=== PATIENT | female | born 1965 | race Caucasian/White ===

== ENCOUNTER → 2021-09-11 07:58 | Outpatient (BNVA) | payer OTHER, SELFPAY | PROVIDERS: PCP Internal Medicine Cardiovascular Disease; Visit Provider Nurse Practitioner Family | DX: Z13.89 Encounter for screening for other disorder (principal) ==

== ENCOUNTER → 2021-11-20 09:33 | Outpatient (REF) | payer OTHER, SELFPAY | LOC: HO.SL 09:33 | PROVIDERS: PCP Internal Medicine Cardiovascular Disease; Visit Provider Nurse Practitioner Family | DX: G47.33 Obstructive sleep apnea (adult) (pediatric) (principal); R06.83 Snoring; R40.0 Somnolence; G25.81 Restless legs syndrome | CPT/HCPCS: 95806 ==

== ENCOUNTER → 2022-07-02 09:33 | Outpatient (BNVA) | payer OTHER, SELFPAY | PROVIDERS: PCP Internal Medicine Cardiovascular Disease; Visit Provider Nurse Practitioner Family | DX: G47.33 Obstructive sleep apnea (adult) (pediatric) (principal); Z99.89 Dependence on other enabling machines and devices | CPT/HCPCS: 99212 ==

== ENCOUNTER 2023-07-08 09:24 | Outpatient (AMB) | payer OTHER, SELFPAY ==
--- NOTE | 2023-07-08 09:27 | MHC.OFFVIS ---
Intake Vital Signs 07/08/23 09:33 Height 5 ft 1 in Weight 159 lb 2 oz BMI 30.1 BP 110/70 Blood Pressure Location Rt brachial Position Sitting Pulse 57 Pulse Source Pulse Oximeter Pulse Oximetry (%) 96 Oxygen Delivery Method Room Air Intake Visit Reasons: 1yr F/u Sleep Apnea-LVM Intake Note: Patient presents 1 year FlU for sleep Apnea. Allergies peanut Allergy (Intermediate, Verified 07/08/23 09:32) Hives HPI HPI Comments History of Present Illness Details 57 y/o female patient presents for follow up of DEEJAY on CPAP. CPAP compliance and therapy response (04/03/23-07/01/22) reviewed. Pt is on APAP [id number]. Usage days 100%, average usage hours 7 hours. The average pressure is 6.6 and the residual AHI was 2.5/hr. Pt reports she sleeps well, but can't sleep more than 6-7 hours at night. If she goes to bed early about 9 pm, she wakes up 5 am and can't go back to sleep. Pt denies daytime sleepiness of tiredness. She can have nasal irritation occasionally. Shiva AM headache. [facility]LY [facility] Surgical History H/O: Family History (Updated 07/08/23 @ 09:38 by Precious Ocasio CMA) Father HTN (hypertension) Hepatitis C Renal failure Mother HTN (hypertension) Hypercholesterolemia due to cholesterol 7alpha-hydroxylase deficiency Brother HTN (hypertension) Hypercholesterolemia due to cholesterol 7alpha-hydroxylase deficiency Social History Alcohol intake: never Patient Tobacco Use Status: Never used Tobacco Review of Systems Const All systems reviewed & are unremarkable except as noted in HPI and below Physical Exam Vital Signs: Last Vital Signs Pulse 57 07/08/23 09:33 BP 110/70 07/08/23 09:33 Pulse Ox 96 07/08/23 09:33 Oxygen Delivery Method Room Air 07/08/23 09:33 BMI result Body Mass Index 30.1 Const General: cooperative and comfortable Nutritional Appearance: overweight Orientation/consciousness: patient oriented x3 Limitations: no limitations HEENT Head: Yes normocephalic Throat: Yes other (mallampati score 3) Neck Neck: Yes full ROM Resp Effort & Inspection: normal respiratory effort and able to speak in complete sentences Auscultation: clear to auscultation bilaterally Neuro General: patient oriented x3, gait normal, moves all extremities and CN's II-XI intact bilaterally Psych Appearance: grossly normal Speech and movement: Normal speech and movement present Affect: normal affect Assessment & Plan Assessment & Plan (1) DEEJAY on CPAP: Comment: A severe degree of sleep apnea with increased severity in supine sleep. The AHI was 28/hr, supine AHI was 42/hr and oxygen tatum was 78%. Code(s): G47.33 - Obstructive sleep apnea (adult) (pediatric); Z99.89 - Dependence on other enabling machines and devices Plan Continue to use APAP [id number] as patient experiences good clinical effects. Stressed compliance, use CPAP nightly, more than 4 hours. Continue daily exercise and wt management. Coding Level of Care Code Est Pt Level 3 (38241) Diagnoses DEEJAY on CPAP G47.33; Z99.89
[2023-07-08 09:33] VITALS: BP 110/70; PULSE 57; O2SAT 96; BMI 30.1
== END 2023-07-08 09:47 | disposition home or self-care (01) ==
PROVIDERS: PCP Internal Medicine Cardiovascular Disease; Visit Provider Nurse Practitioner Family
DX: G47.33 Obstructive sleep apnea (adult) (pediatric) (principal); Z99.89 Dependence on other enabling machines and devices
CPT/HCPCS: 99213

== ENCOUNTER → 2023-07-08 09:24 | Outpatient (BNVA) | payer OTHER, SELFPAY | PROVIDERS: Visit Provider Nurse Practitioner Family | DX: G47.33 Obstructive sleep apnea (adult) (pediatric) (principal); Z99.89 Dependence on other enabling machines and devices | CPT/HCPCS: 99212 ==

== ENCOUNTER 2024-07-06 09:29 | Outpatient (AMB) | payer OTHER, SELFPAY ==
--- NOTE | 2024-07-06 09:36 | MHC.OFFVIS ---
Vital Signs 07/06/24 09:38 Height 5 ft 1 in Weight 161 lb BMI 30.4 BP 114/70 Blood Pressure Location Lt brachial Position Sitting Pulse 62 Pulse Source Pulse Oximeter Pulse Oximetry (%) 97 Oxygen Delivery Method Room Air Intake Visit Reasons: 1 yr f/u Intake Note: Patient presents for a 1 year fu for DEEJAY. Medieval English Literature Professor Required: No Accompanied by: Self / Same As Patient Allergies peanut Allergy (Intermediate, Verified 07/06/24 09:37) Hives HPI Comments Details: 58 year old female with DEEJAY here for a 1 year f/u. DEEJAY Compliance Report: 04/04/2024- 07/02/2024 Average use >4 hours 35% APAP [id number] Leaks 8.8-2 High leaks, AHI 2.3 She sleeps for about 5.5 hours, she goes to sleep 11pm and gets up at 5am, feels well rested when she wakes up. She changes the filters, cleans mask and tubing, and fills water daily. She recently moved and could not get supplies on time due to Prior Authorization lapse. Denies fatigue, and napping throughout the day. Denies headaches, RLS. She walks daily 1mile - 3miles on the weekend. Her diet is good, dessert is her weakness. Her mood and memory is good. Denies smoking, alcohol on social occasions. [facility] Surgical History H/O: Family History Father HTN (hypertension) Hepatitis C Renal failure Mother HTN (hypertension) Hypercholesterolemia due to cholesterol 7alpha-hydroxylase deficiency Brother HTN (hypertension) Hypercholesterolemia due to cholesterol 7alpha-hydroxylase deficiency Social History Alcohol intake: never Patient Tobacco Use Status: Never used Tobacco Physical Exam Vital Signs: Last Vital Signs Pulse 62 07/06/24 09:38 BP 114/70 07/06/24 09:38 Pulse Ox 97 07/06/24 09:38 Oxygen Delivery Method Room Air 07/06/24 09:38 BMI result Body Mass Index 30.4 Const General: cooperative and comfortable Nutritional Appearance: overweight Orientation/consciousness: patient oriented x3 Limitations: no limitations HEENT Head: Yes normocephalic Throat: Yes other (mallampati score 3) Neck Neck: Yes full ROM Resp Effort & Inspection: normal respiratory effort and able to speak in complete sentences Auscultation: clear to auscultation bilaterally Neuro General: patient oriented x3, gait normal, moves all extremities and CN's II-XI intact bilaterally Psych Appearance: grossly normal Speech and movement: Normal speech and movement present Affect: normal affect Assessment & Plan Assessment & Plan (1) DEEJAY on CPAP: Comment: A severe degree of sleep apnea with increased severity in supine sleep. The AHI was 28/hr, supine AHI was 42/hr and oxygen tatum was 78%. Code(s): G47.33 - Obstructive sleep apnea (adult) (pediatric); Z99.89 - Dependence on other enabling machines and devices Category: Medical (2) HTN (hypertension): Code(s): I10 - Essential (primary) hypertension Category: Medical Qualifiers: Hypertension type: primary hypertension Qualified Code(s): I10 - Essential (primary) hypertension Plan Continue CPAP daily, as patient is experiences refreshed sleep on CPAP. Stressed compliance of CPAP nightly, as patient has HTN and severe sleep apnea. The number 1 modifiable RF for reduction of CV events is HTN, AHA recommends the dash diet, along with lifestyle modificaions. Will f/u in one year, or sooner if she has any other needs. Coding Level of Care Code Est Pt Level 3 (70803) Diagnoses DEEJAY on CPAP G47.33; Z99.89 Primary hypertension I10 Hypertension type: primary hypertension Time Spent (min) 20 Comment improving
[2024-07-06 09:38] VITALS: BP 114/70; PULSE 62; O2SAT 97; BMI 30.4
--- OUTSIDE RECORDS SUMMARY | 2024-07-06 10:05 | XMS_ITS | Encounter Summary ---
Author Organization [facility] Address [address] [place] [address] Care Team Providers Care Chemical Equipment Sales Engineer Name Role Phone Leda Higgins MD Primary Care Provider Un available Reason for Visit * Reason Comments Medication Refill Encounter Details Date Type Department Care Team (Late st Contact Info) Description 02/28/[address] [phone] Leda Higgins MD Retired provider Mixed hyperlipidemia Social History Tobacco Use Types Packs/Day Years Used Date Smoking Tobacco: Never Assessed Sex and Gender Information Value Date Recorded Sex Assigned at Female 2023 12:16 PM EDT Gender Identity Female 2023 12:16 PM EDT Sexual Orientation Heterosexual (straight) 11/17 12:16 PM EDT documented as of this encounter Plan of Treatment Not on file documented as of this encounter Visit Diagnoses Diagnosis Mixed hyperlipidemia documented in this encounter Care Teams Chemical Equipment Sales Engineer Relationship Specialty Start Date End Date Leda Higgins MD PCP - General Cardiovascular Disease 09/09/19 documented as of this encounter
--- OUTSIDE RECORDS SUMMARY | 2024-07-06 10:05 | XMS_ITS | Encounter Summary ---
Author Organization [facility] [address] [place] [address] Care Team Providers Care Atomic Welder Name Role Phone Leda Higgins MD Primary Care Provider Un available Encounter Details Date Type Department Care Team (Late st Contact Info) Description 09/09/2019 Scanned Document [address] [phone] Leda Higgins MD Retired provider Social History Tobacco Use Types Packs/Day Years Used Date Smoking Tobacco: Never Assessed Sex and Gender Information Value Date Recorded Sex Assigned at Female 2023 12:16 PM EDT Gender Identity Female 2023 12:16 PM EDT Sexual Orientation Heterosexual (straight) 11/17 12:16 PM EDT documented as of this encounter Plan of Treatment Not on file documented as of this encounter Visit Diagnoses Not on filedocumented in this encounter Care Teams Atomic Welder Relationship Specialty Start Date End Date Leda Higgins MD PCP - General Cardiovascular Disease 09/09/19 documented as of this encounter
--- OUTSIDE RECORDS SUMMARY | 2024-07-06 10:05 | XMS_ITS | Encounter Summary ---
Author Organization [facility] [address] [place] [address] Care Team Providers Care Rn Neurosurgical Name Role Phone Leda Higgins MD Primary Care Provider Un available Encounter Details Date Type Department Care Team (Late st Contact Info) Description 09/09/2019 Scanned Document [address] [phone] Leda Higgins MD Retired provider Social History [...] on filedocumented in this encounter Care Teams Rn Neurosurgical Relationship Specialty Start Date End Date Leda Higgins MD PCP - General Cardiovascular Disease 09/09/19 documented as of this encounter
--- OUTSIDE RECORDS SUMMARY | 2024-07-06 10:05 | XMS_ITS | Encounter Summary ---
Author Organization [facility] Address [address] [place] [address] Care Team Providers Care Pari Mutual Ticket Checker Name Role Phone Leda Higgins MD Primary Care Provider Un available Encounter Details Date Type Department Care Team (Late st Contact Info) Description 05/22/[address] [phone] Leda Higgins MD Retired provider Social History Tobacco Use Types Packs/Day Years Used Date Smoking Tobacco: Never Smokeless Tobacco: Never Alcohol Use Standard Drinks/Week Comments Never 0 (1 standard drink = 0.6 oz pur e alcohol) PHQ-2 Answer Date Recorded PHQ-2 Total Score 0 02/14/2021 Sex and Gender Information Value Date Recorded Sex Assigned at Female 2023 12:16 PM EDT Gender Identity Female 2023 12:16 PM EDT Sexual Orientation Heterosexual (straight) 11/17 12:16 PM EDT documented as of this encounter Miscellaneous Notes * Telephone Encounter - Eddi Sosa - 05/22/2022 11:17 AM EST 90 DAY SUPPLY documented in this encounter Plan of Treatment Not on file documented as of this encounter Visit Diagnoses Not on filedocumented in this encounter Care Teams Pari Mutual Ticket Checker Relationship Specialty Start Date End Date Leda Higgins MD PCP - General Cardiovascular Disease 09/09/19 documented as of this encounter
--- OUTSIDE RECORDS SUMMARY | 2024-07-06 10:05 | XMS_ITS | Clinical Summary ---
Author Organization [facility] Address [address] [place] [address] Care Team Providers Care Supervisor Liquid Yeast Name Role Phone Kevyn Higgins MD Primary Care Provider [phone] Allergies Active Allergy Reactions Criticality Noted Date Comments Latex Dermatitis Low 05/15/2018 Medications Medication Sig Dispensed Refills Start Date End Date Status Azilsartan-Chlorth alidone (EDARBYCLOR) 40-25 MG TABS Take by mouth. 0 Active Coenzyme Q10 10 MG capsule Take 100 mg by mouth daily. 0 Active rosuvastatin (CRESTOR) tablet 20 mg rosuvastatin 20 mg tablet 0 Active montelukast (SINGULAIR) 10 MG tabletIndications: Cough variant asthma Take 1 tablet (10 mg total) by mouth every night at bedtime. 30 tablet 1 03/05/2023 Active potassium chloride ER (K-DUR,KLOR-CON) tablet 20 mEq Take 1 tablet (20 mEq total) by mouth every other day. 0 06/11/2021 Active COVID-19 At Home Antigen Test KITIndications:At increased risk of exposure to COVID-19 virus 1 kit by In Vitro route once as needed for up to 1 dose. 1 kit 0 12/05/2023 Active Active Problems Problem Noted Date Diagnosed Date Obstructive sleep apnea 06/30/2023 06/30/19 24 Asthma 06/30/2023 06/30/2023 Obesity (BMI 30-39.9) 02/14/2021 06/30/2023 Essential hypertension 05/15/2018 Mixed hyperlipidemia 05/15/2018 Immunizations Name Administration Dates Next Due Covid-19 (Pfizer 12+) 0.3mL mRNA Fall 04/07 Covid-19 (Pfizer) Dilution Required 03/06/2021,0 06/29/2020,06/11/2020 Influenza Quad (Afluria/Fluz one) 0.5mL >=6mon Vial (SD-IIV4) 03/22/2022 Influenza Quad (Fluarix/Fluz one/FluLaval) 0.5mL (SD-IIV4) 04/11/2021,04/05/2020 Pneumococcal Polysaccharide PPSV23 02/23/2020 Shingrix Vaccine (Zoster Recombinant) 06/27/2021 ,02/14/2021 Td (Tenivac) 03/12/2020 Social History Tobacco Use Types Packs/Day Years Used Date Smoking Tobacco: Never Assessed Sex and Gender Information Value Date Recorded Sex Assigned at Female 08/10/2018 2:57 PM EST Gender Identity Not on file Sexual Orientation Not on file Last Filed Vital Signs Vital Sign Reading Time Taken Comments Blood Pressure - - Pulse - - Temperature - - Respiratory Rate - - Oxygen Saturation - - Inhaled Oxygen Concentration - - Weight 74.8 kg (165 lb) 08/11/2018 9:00 AM EST Height 154.9 cm (5' 1 ) 08/11/2018 9:00 AM EST Body Mass Index 31.18 08/11/2018 9:00 AM EST Plan of Treatment Health Maintenance Due Date Last Done Comments Hepatitis B Vaccines (1 of 3 - 3-dose series) 1965 Hepatitis C Screening 1965 Depression Screening 1977 Preventative Health Evaluation 11/19/1983 Cervical Cancer Screening (Pap Smear) 1986 Colon Cancer Screening (Colonoscopy) 2010 Breast Cancer Screening (Mammogram) 11/19/2015 DTap / Tdap / Td (1 - Tdap) 03/13/2020 03/12/2020 Influenza Vaccine (#1) 2024 2, 04/11/2021, 04/05/2020 Pneumococcal Vaccine Aged Out 02/23/2020 No long er eligible based on patient's age to complete this topic Shingrix-Zoster Vaccine Completed 06/27/2021, 02/14 COVID-19 Vaccine Completed 04/07/2024, , 06/29/2020, Additional history exists RSV Ped < 20 months Aged Out No longe r eligible based on patient's age to complete this topic Care Teams Supervisor Liquid Yeast Relationship Specialty Start Date End Date Kevyn Higgins MD PCP - General Cardiology 08/10/18
--- OUTSIDE RECORDS SUMMARY | 2024-07-06 10:05 | XMS_ITS | Encounter Summary ---
Author Organization [facility] [address] [place] [address] Care Team Providers Care Dry Cleaner Apprentice Name Role Phone Leda Higgins MD Primary Care Provider Un available Encounter Details Date Type Department Care Team (Late st Contact Info) Description 09/09/2019 Scanned Document [address] [phone] Leda Higgins MD Retired provider Social History [...] on filedocumented in this encounter Care Teams Dry Cleaner Apprentice Relationship Specialty Start Date End Date Leda Higgins MD PCP - General Cardiovascular Disease 09/09/19 documented as of this encounter
--- OUTSIDE RECORDS SUMMARY | 2024-07-06 10:05 | XMS_ITS | Clinical Summary ---
Author Organization [facility] Address [address] [place] [address] Care Team Providers Care Distillery Worker Name Role Phone Leda Higgins MD Primary Care Provider [phone] Medications Medication Sig Dispensed Refills Start Date End Date Status azithromycin (ZITHROMAX) 250 mg tabletIndications:LRT I (lower respiratory tract infection) Take 2 tablets (500 mg total) by mouth 1 (one) time each day for 1 day, THEN 1 tablet (250 mg total) 1 (one) time each day for 4 days. 6 each 07/02/2024 07/07/2024 Active Immunizations Name Administration Dates Next Due Influenza Quadrivalent, 0.5m l, preservative free (Fluarix; FluLaval; Fluzone) ages 6mo and older (Afluria) 3yo and older 04/11/2021,04/05/2020 Influenza Quadrivalent, with preservative (Fluzone; Afluria) 6mo and older 03/22/2022 Influenza trivalent, 0.5mL, preservative free (Fluarix; FluLaval; Fluzone) ages 6mo and older (Afluria) 3 years and older 04/19/2024 Pneumococcal polysaccharide 23 valent (Pneumovax 23) 2yo and older 02/23/2020 Td Tetanus diptheria, preser vative free (Tenivac) 7yo and older 03/12/2020 Zoster recombinant (Shingrix) 19yo and older ,02/14/2021 Social History Tobacco Use Types Packs/Day Years Used Date Smoking Tobacco: Never Assessed Sex and Gender Information Value Date Recorded Sex Assigned at Not on file Gender Identity Not on file Sexual Orientation Not on file Plan of Treatment Health Maintenance Due Date Last Done Comments Hepatitis B Vaccines (1 of 3 - 19+ 3-dose series) 1984 Cervical Cancer Screening: Pap Smear 1986 Pneumococcal Vaccine: Pediatrics (0 to 5 Years) and At-Risk Patients (6 to 64 Years) (2 of 2 - PCV) 02/22/2021 02/23/2020 Cholesterol Screening (Lipid Panel) 05/17/2022 Colorectal Cancer Screening: Colonoscopy 05/17/2022 Depression Screening 05/17/2022 HIV Screening 05/17/2022 Hepatitis C Screening 05/17/2022 Social Influencers of Health Screening 05/17/2022 Hypertension/CHF/CAD Annual BMP Blood Test 06/02/2022 Breast Cancer Screening 07/22/2025 07/22/19 24, 07/09/2022, 06/26/2021, Additional history exists DTaP,Tdap,and Td Vaccines (2 - Td or Tdap) 03/12/2030 03/12/2020 Zoster Vaccines Completed 06/27/2021, 02/14/2021 COVID-19 Vaccine Completed 04/07/2024, , 06/29/2020, Additional history exists Influenza Vaccine Completed 04/19/2024, , 04/11/2021, Additional history exists HIB Vaccines Aged Out No longer eligi ble based on patient's age to complete this topic HPV Vaccines Aged Out No longer eligi ble based on patient's age to complete this topic Hepatitis A Vaccines Aged Out No long er eligible based on patient's age to complete this topic IPV Vaccines Aged Out No longer eligi ble based on patient's age to complete this topic MMR Vaccines Aged Out No longer eligi ble based on patient's age to complete this topic Meningococcal ACWY Vaccine Aged Out N o longer eligible based on patient's age to complete this topic RSV Immunization Patients Under 20 months Aged Out No longer eligible based on patient's age to complete this topic Varicella Vaccines Aged Out No longer eligible based on patient's age to complete this topic Procedures Procedure Name Priority Date/Time Associated Diagnosis Comments REYES SCREENING DIGITAL Routine 07/22/2023 2:55 PM EST Encounter for screening mammogram for malignant neoplasm of breast from Last 3 Months or Most Recently Relevant to Health Maintenance Results * REYES SCREENING DIGITAL (07/22/2023 2:55 PM EST) Anatomical Region Laterality Modality Mammography 07/22/2023 6:59 AM EST Narrative 07/22/2023 2:55 PM EST [facility] Diagnostic Imaging Department [address] [place] [id number] Patient: ??CYNDI DEL RIO ?/Age/Sex: 1965 - 57 - F Unit#: ??[id number] ? Location/Status: ??SPDIMAM/REG CLI ? Mnemonic/Ordering Site: ??DIGSC/SPMAM Ordering Physician: ??JAH DELCID MD [facility] Screening Digital - 07/22/23722 Report Status:Signed EXAM: [facility] Screening Digital EXAM DATE AND TIME: 07/22/2023 7:23 AM HISTORY: ??Screening. COMPARISON: ??07/09/22, 06/26/21, 05/16/20 and earlier exams dating back to 2014. TECHNIQUE: Bilateral digital breast tomosynthesis was performed in the CC and MLO projections. Computer aided detection with iCAD C$ cMoney 3D 3.1 was employed. TISSUE DENSITY: b. There are scattered areas of fibroglandular density. FINDINGS: No suspicious masses, grouped microcalcifications, or areas of architectural distortion are seen. A circumscribed 13 mm nodule in the anterior to middle 3:00 position of the left breast is without significant change and has been shown previously to represent a cyst by ultrasound. Skin and vascular calcifications are noted. IMPRESSION: Stable mammographic appearance of the breasts. ??No evidence of malignancy is seen. A negative mammogram in the presence of a clinically suspicious palpable abnormality does not preclude the possibility of malignancy or alter the indications for biopsy. BI-RADS: ??Category 2: Benign RECOMMENDATION(S): 1: Routine screening mammogram BILATERAL in 1 year. Dictating Physician: ??LIZZIE PHILLIP MD Electronically Signed by: ??LIZZIE PHILLIP MD Dic Date/Time: ??07/22/23 1454 Sign date/Time: ??07/22/23 1456 Procedure Note Lizzie Phillip MD - 02/01/2024 [facility] Diagnostic Imaging Department [address] [place] [address] Patient: CYNDI DEL RIO /Age/Sex: 1965 - 57 - F Unit#: [id number] [facility]onic/Ordering Site: [facility] Ordering Physician: JAH DELCID MD [facility] Screening Digital - 07/22/23722 Report Status:Signed EXAM: [facility] Screening Digital EXAM DATE AND TIME: 07/22/2023 7:23 AM HISTORY: Screening. COMPARISON: 07/09/22, 06/26/21, 05/16/20 and earlier exams dating back si2079. TECHNIQUE: Bilateral digital breast tomosynthesis was performed in the CCand MLO projections. Computer aided detection with [employer] 3D 3.1was employed. TISSUE DENSITY: b. There are scattered areas of fibroglandular density. FINDINGS: No suspicious masses, grouped microcalcifications, or areas ofarchitectural distortion are seen. A circumscribed 13 mm nodule in the anterior tomiddle 3:00 position of the left breast is without significant change and has beenshown previously to represent a cyst by ultrasound. Skin and vascular calcifications are noted. IMPRESSION: Stable mammographic appearance of the breasts. No evidence of malignancyis seen. A negative mammogram in the presence of a clinically suspicious palpable abnormality does not preclude the possibility of malignancy or alter the indications for biopsy. BI-RADS: Category 2: Benign RECOMMENDATION(S): 1: Routine screening mammogram BILATERAL in 1 year. Dictating Physician: LIZZIE PHILLIP MD Electronically Signed by: LIZZIE PHILLIP MD Dic Date/Time: 07/22/23 1454 Sign date/Time: 07/22/23 1455 Jah Delcid MD IMG BI PROCEDURES from Last 3 Months or Most Recently Relevant to Health Maintenance Care Teams Distillery Worker Relationship Specialty Start Date End Date Leda Higgins MD [address] [place] [phone] PCP - General Cardiology 08/10/18
--- OUTSIDE RECORDS SUMMARY | 2024-07-06 10:05 | XMS_ITS | Encounter Summary ---
Author Organization [facility] [address] [place] [address] Care Team Providers Care Senior Project Controls Specialist Name Role Phone Leda Higgins MD Primary Care Provider Un available Encounter Details Date Type Department Care Team (Late st Contact Info) Description 07/05/2021 Scanned Document [address] [phone] Leda Higgins MD Retired provider Social History [...] Orientation Heterosexual (straight) 11/17 12:16 PM EDT COVID-19 Exposure Response Date Recorded In the last month, have you been in contact with someone who was confirmed or suspected to have Coronavirus / COVID-19? No / Unsure 06/27/2021 8:14 AM EST documented as of this encounter Plan of Treatment Not on file documented as of this encounter Visit Diagnoses Not on filedocumented in this encounter Care Teams Senior Project Controls Specialist Relationship Specialty Start Date End Date Leda Higgins MD PCP - General Cardiovascular Disease 09/09/19 documented as of this encounter
--- OUTSIDE RECORDS SUMMARY | 2024-07-06 10:05 | XMS_ITS ---
Author Name [facility] History of Medication Use Medication Directions Dispensed Refills Start Date End Date Stat montelukast (SINGULAIR) 10 M G tablet 06/25/2019 active Problems Problem Status Onset Date Problem Type Date of Resoluti on Source Hyperlipidemia active 2019-09-[address] Obesity (BMI 30-39.9) active 2021-02-14 ProblemAct [facility] Obstructive sleep apnea active ProblemAct [facility] Asthma active ProblemAct [facility] Essential hypertension, benign active 2019-09-09 ProblemAct [facility]
--- OUTSIDE RECORDS SUMMARY | 2024-07-06 10:05 | XMS_ITS | Encounter Summary ---
Author Organization [facility] [address] [place] [address] Care Team Providers Care Landfill Grader Name Role Phone Leda Higgins MD Primary Care Provider Un available Encounter Details Date Type Department Care Team (Late st Contact Info) Description 09/09/2019 Scanned Document [address] [id number] Leda Higgins MD Retired provider Social History [...] on filedocumented in this encounter Care Teams Landfill Grader Relationship Specialty Start Date End Date Leda Higgins MD PCP - General Cardiovascular Disease 09/09/19 documented as of this encounter
== END 2024-07-06 09:58 | disposition home or self-care (01) ==
PROVIDERS: PCP Internal Medicine Cardiovascular Disease; Visit Provider Physician Assistant Medical
DX: G47.33 Obstructive sleep apnea (adult) (pediatric) (principal); Z99.89 Dependence on other enabling machines and devices; I10 Essential (primary) hypertension
CPT/HCPCS: 99213

== ENCOUNTER → 2024-07-06 09:29 | Outpatient (BNVA) | payer OTHER, SELFPAY | PROVIDERS: PCP Internal Medicine Cardiovascular Disease; Visit Provider Physician Assistant Medical | DX: G47.33 Obstructive sleep apnea (adult) (pediatric) (principal); I10 Essential (primary) hypertension; Z99.89 Dependence on other enabling machines and devices | CPT/HCPCS: 99212 ==